=== PATIENT | male | born 1995 | race Caucasian/White ===

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

== ENCOUNTER 2017-05-11 18:44 | Emergency (ER) | payer OTHER ==
[~2017-05-11] VITALS: Ht 177.8 cm; Wt 77.2 kg
[2017-05-11 19:17] VITALS: BP 143/91
[2017-05-11 20:07] LABS: ALBUMIN 4.5 g/dL (3.2-4.8); CHLORIDE 107 mEq/L (99-109); HEMATOCRIT 44.7 % (38.0-50.0); HEMOGLOBIN 15.4 G/DL (12.5-16.6); MCH 30.5 PG (29.0-34.0); MCHC 34.5 G/DL (30.0-36.0); MCV 88.5 FL (86-99); PLATELET COUNT 239 K/uL (156-360); POTASSIUM 3.9 mEq/L (3.7-5.4); RBC DIS.WIDTH-CV 12.4 % (11.8-14.6); RBC DIS.WIDTH-SD 40.4 % (39-53); RED BLOOD COUNT 5.05 M/uL (4.00-5.50); SODIUM 139 mEq/L (136-147); WHITE BLOOD COUNT 9.3 K/uL (4.1-10.2)
[2017-05-11 20:09] LABS: GLUCOSE 91 mg/dL (70-99); TOTAL PROTEIN 7.8 g/dL (6.4-8.3)
[2017-05-11 20:11] LABS: TOTAL BILIRUBIN 0.3 mg/dL (0.0-1.0)
[2017-05-11 20:13] LABS: ALKALINE PHOSPHATASE 106 IU/L (3-129); CREATININE 0.9 mg/dL (0.6-1.3); GFR ESTIMATE (CALCULATED) > 59 mL/min/ (58.99-99999)
[2017-05-11 20:14] LABS: UREA NITROGEN (BUN) 11 mg/dL (9-23)
[2017-05-11 20:15] LABS: AST (GOT) 19 IU/L (2-34)
[2017-05-11 20:16] LABS: ALT (GPT) 15 IU/L (3-49)
[2017-05-11 20:25] LABS: APPEARANCE CLEAR ((CLEAR)); BILIRUBIN NEGATIVE; BLOOD SMALL; COLOR STRAW ((YELLOW)); GLUCOSE (STRIP) NEGATIVE; KETONES NEGATIVE; LEUKOCYTES NEGATIVE; NITRITE NEGATIVE; PROTEIN (STRIP) NEGATIVE; UROBILINOGEN 0.2 MG/DL (0.2-1.0)
[2017-05-11 20:29] LABS: BACTERIA NONE SEEN /HPF; EPITHELIAL CELLS NONE SEEN /HPF; MUCUS TRACE /LPF; RED BLOOD CELLS 0-5 /HPF (0-5); UCUL ADDED? NO; WHITE BLOOD CELLS 0-5 /HPF (0-5)
== END 2017-05-11 20:38 | disposition left against medical advice (07) ==
LOC: EME 18:44
DX: R68.89 Other general symptoms and signs (principal); Z53.21 Procedure and treatment not carried out due to patient leaving prior to being seen by health care provider
CPT/HCPCS: 80053; 81003; 82948; 85027

== ENCOUNTER 2017-05-14 22:21 | Emergency (ER) | payer OTHER ==
[~2017-05-14] VITALS: Ht 177.8 cm; Wt 81.4 kg
[2017-05-15 00:28] VITALS: BP 141/85
== END 2017-05-15 00:28 | disposition home or self-care (01) ==
LOC: EME 22:21
DX: S39.012A Strain of muscle, fascia and tendon of lower back, initial encounter (principal); R45.4 Irritability and anger; Y93.H1 Activity, digging, shoveling and raking; F31.9 Bipolar disorder, unspecified; F84.0 Autistic disorder; F42.9 Obsessive-compulsive disorder, unspecified; F90.9 Attention-deficit hyperactivity disorder, unspecified type; F91.3 Oppositional defiant disorder; F17.200 Nicotine dependence, unspecified, uncomplicated; Z88.5 Allergy status to narcotic agent